=== PATIENT | female | born 1995 | race African-American/Black ===

== ENCOUNTER 2020-05-20 16:14 | Emergency (ER) | payer SELFPAY ==
[~2020-05-20] VITALS: Ht 167.6 cm; Wt 63.6 kg
[2020-05-20 16:22] VITALS: BP 104/67; TEMP 98.9
[2020-05-20] MEDS ORDERED: PRENATAL TABLET PO (16:26)
[2020-05-20 16:55] LABS: COLLECTION METHOD CLEAN CATCH
[2020-05-20 17:01] LABS: BASO % 0.3 % (0.0-2.0); EOS # 0.2 (0.0-0.7); EOS % 2.4 % (0-4.0); GRAN # 5.3 (1.4-6.5); GRAN % 67.6 % (42.2-75.2); HEMOGLOBIN 11.5 g/dl (12.5-16.0); LYMPH # 1.8 (1.2-3.4); MEAN CELL VOLUME 85 fl (80.0-100.0); MEAN CORPUSCULAR HEMOGLOBIN 29 pg (27.0-31.0); MEAN CORPUSCULAR HGB CONC 34 g/dl (33.0-37.0); MEAN PLATELET VOLUME 10.8 fl (7.4-10.4); MONO # 0.5 (0.1-0.6); MONO % 6.1 % (1.7-9.3); PLATELET COUNT 161 K/mm3 (130-400); RED BLOOD COUNT 4.04 M/mm3 (4.10-5.30); REDCELL DISTRIBUTION WIDTH-CV 14.6 % (11.5-14.5)
[2020-05-20 17:03] LABS: PH 6 (5-8); SQUAMOUS EPITHELIAL 0-2 /hpf; URINE APPEARANCE Hazy; URINE BACTERIA None Seen /hpf; URINE BILIRUBIN Negative (NEGATIVE); URINE BLOOD Negative (NEGATIVE); URINE COLOR Yellow; URINE GLUCOSE Negative (NEGATIVE); URINE KETONE Negative (NEGATIVE); URINE LEUKOCYTE ESTERASE 3+ (NEGATIVE); URINE NITRATE Negative (NEGATIVE); URINE PROTEIN(semi-quant) Negative (NEGATIVE); URINE UROBILINOGEN Negative (NEGATIVE)
[2020-05-20 17:05] LABS: HEMATOCRIT 34.3 % (37.0-47.0)
[2020-05-20 17:14] LABS: ALBUMIN 3.5 gm/dL (3.5-5.0); BILIRUBIN,TOTAL 0.3 mg/dL (0.0-1.0); C-REACTIVE PROTEIN 0.9 mg/dL (0.0-0.9); CALCIUM 8.4 mg/dL (8.4-10.2); CREATININE, serum 0.7 (0.52-1.25); POTASSIUM 3.1 mmol/L (3.4-5.0); TOTAL PROTEIN 6.3 gm/dL (6.4-8.2)
[2020-05-20] MEDS ORDERED: CEPHALEXIN500 M1 PO (17:24)
[2020-05-20 17:31] VITALS: PULSE 85
== END 2020-05-20 17:34 | disposition home or self-care (01) ==
LOC: COL.ER 16:14
PROVIDERS: Family Medicine
DX: O23.91 Unspecified genitourinary tract infection in pregnancy, first trimester (principal); O26.891 Other specified pregnancy related conditions, first trimester; R10.9 Unspecified abdominal pain; Z3A.00 Weeks of gestation of pregnancy not specified

== ENCOUNTER 2021-03-09 15:07 | Emergency (ER) | payer MEDICAID ==
[~2021-03-09] VITALS: Ht 167.6 cm; Wt 54.5 kg
[~2021-03-09 15:07] MED LIST: CEPHALEXIN500 M1 PO; PRENATAL TABLET PO
[2021-03-09 17:35] VITALS: BP 118/64; PULSE 74; TEMP 98.6
== END 2021-03-09 17:35 | disposition home or self-care (01) ==
LOC: COL.ER 15:07
DX: U07.1 COVID-19 (principal)